=== PATIENT | female | born 1930 | race Caucasian/White ===

== ENCOUNTER 2018-04-09 20:47 | Emergency (ER) | payer MEDICARE, OTHER ==
[~2018-04-09] VITALS: Ht 162.6 cm; Wt 58.1 kg
[~2018-04-09 20:47] MED LIST: ALEN1TAB3 PO; ASP81TEC PO; ATRV10T PO; CALC1TAB88 PO; OMEG1CAP51 PO
--- OUTSIDE RECORDS SUMMARY | 2018-04-09 20:55 | XMS REPORT | Continuity of Care Document ---
Author Author [facility] Ctr of [facility] Ctr of [facility] Address Unknown Phone Unavailable Allergies Active Description Code Type Severity Reaction Onset Reported/Identified Relationship to Patient Clinical Status Yes No Known Drug Allergies [id number] Drug Allergy Unknown N/A 05/04/2013 Medications There is no data. Problems Date Dx Coded Attending Type Code Diagnosis Diagnosed By 01/15/2016 Ot 733.00 OSTEOPOROSIS NOS 01/15/2016 Ot 733.90 BONE CARTILAGE DIS NOS 01/15/2016 TORIE OLIVARES DO Ot 780.2 SYNCOPE AND COLLAPSE 01/19/2016 TORIE OLIVARES DO Ot R05 COUGH 02/05/2016 TORIE OLIVARES DO Ot R05 COUGH 03/05/2016 TORIE OLIVARES DO Ot R06.02 SHORTNESS OF BREATH 03/08/2016 TORIE OLIVARES DO Ot R06.02 SHORTNESS OF BREATH 03/08/2016 TORIE OLIVARES DO Ot R06.02 SHORTNESS OF BREATH 03/12/2016 TORIE OLIVARES DO Ot R06.02 SHORTNESS OF BREATH 03/26/2016 TORIE OLIVARES DO Ot R06.02 SHORTNESS OF BREATH 04/06/2016 TORIE OLIVARES DO Ot R06.02 SHORTNESS OF BREATH Procedures There is no data. Results There is no data. Encounters ACCT No. Visit Date/Time Discharge Status Pt. Type Provider Facility Loc./Unit Complaint [id number] 03/05/2016 11:34:00 03/05/2016 23:59:59 CLS Outpatient TORIE OLIVARES DO [facility] RT [id number] 03/05/2016 11:29:00 03/05/2016 23:59:59 CLS Outpatient TORIE OLIVARES DO [facility] CARD [id number] 01/15/2016 09:59:00 01/15/2016 23:59:59 CLS Outpatient TORIE OLIVARES DO [facility] RAD [id number] 05/04/2013 06:51:00 05/04/2013 23:59:59 [facility] Outpatient TORIE OLIVARES DO [facility] RAD [id number] 04/07/2012 09:14:00 Document Registration
[2018-04-09] MEDS ORDERED: OXYMETAZOLINE (AFRIN) 0.05% NA 15 ML BTL ONE (21:57)
--- NOTE | 2018-04-09 22:09 | ED EENT ---
History of Present Illness General Chief Complaint: Nasal Problems Stated Complaint: NOSE BLEED COUPLE HOURS Nursing Triage Note: c/o nose bleed Source: patient Exam Limitations: no limitations History of Present Illness Date Seen by Provider: Apr 09, 2018 Time Seen by Provider: 21:30 Initial Comments Patient is an 87-year-old female who presents to the emergency room with complaints of right sided nosebleed that started at 1930 tonight. Timing/Duration: abrupt Location: nose Prearrival Treatment: no prearrival treatment, squeezing nostrils Associated Symptoms: denies symptoms Allergies and Home Medications Allergies Coded Allergies: No Known Drug Allergies (Unverified , 05/04/13) Home Medications Alendronate Sodium/Vitamin D3 1 Each Tablet, 1 EACH PO ONCE WEEKLY, (Reported) Amoxicillin/Potassium Clav 1 Each Tablet, 1 EACH PO BID Prescribed by: CAMELIA ADAMSON on 04/09/182236 Aspirin 81 Mg Tabec, 81 MG PO DAILY, (Reported) Atorvastatin Calcium 10 Mg Tablet, 1 EACH PO DAILY, (Reported) Patient Home Medication List Home Medication List Reviewed: Yes Review of Systems Constitutional: see HPI; No chills, No fever Nose: see HPI; denies clots, denies congestion; epistaxis; denies pain; bloody discharge; denies clear discharge, denies previous injury All Other Systems Reviewed Negative Unless Noted: Yes Past Vxilvsl-Qzjyyw-Vhtctb Hx Past Med/Social Hx: Reviewed Nursing Past Med/Soc Hx Patient Social History Alcohol Use: Denies Use Recreational Drug Use: No Smoking Status: Never a Smoker Recent Foreign Travel: No Contact w/Someone Who Travel: No Recent Infectious Disease Expo: No Physical Abuse: No Sexual Abuse: No Past Medical History Surgeries: Yes Adenoidectomy, Tonsillectomy Respiratory: No Cardiac: No Neurological: No Genitourinary: No Gastrointestinal: No Musculoskeletal: No Endocrine: No HEENT: No Cancer: No Psychosocial: No Nursing Suicide Risk Score: 0 Integumentary: No Blood Disorders: No Family Medical History Reviewed Nursing Family Hx Physical Exam Vital Signs Vital Signs - First Documented 04/09/18 04/09/18 21:19 23:11 Temp 98.2 Pulse 68 Resp 18 B/P (MAP) 218/72 (120) Pulse Ox 98 O2 Delivery Room Air Height, Weight, BMI Height: 5'4.00" Weight: 128lbs. oz. 58.339294vp; 21.97 BMI Method:Stated General Appearance: WD/WN, no apparent distress Nose: active bleeding; No discharge; dried blood Mouth/Throat: normal mouth inspection, other (no blood running down the back of her throat. not coughing up blood.) Cardiovascular: regular rate, rhythm, no edema, no gallop, no JVD, no murmur Respiratory: chest non-tender, lungs clear, normal breath sounds, no respiratory distress, no accessory muscle use Skin: normal color, warm/dry Procedures/Interventions Nasal : Nasal Location: Right Clots Cleared from Nasal: Patient Blowing Nasal Drops Instilled: Afrin Inspection with: Otoscope Nasal Procedures: Rapid Rhino (4.5cm) Progress The nasal passages were cleared by having the patient blow her nose. Afrin was used as a vasoconstrictor. A rapid Rhino was inserted that had been saturated in saline. Bleeding is controlled at this time. Progress/Results/Core Measures Results/Orders My Orders Medications Given in ED Vital Signs/I&O Blood Pressure Mean: 120 Progress Progress Note : Progress Note The bleeding has been controlled with the rapid rhino. Her blood pressure has trended down over the stay. She agrees with plans for discharge and close follow up with Dr. Urbano tomorrow. Departure Impression Primary Impression: Epistaxis Disposition: 01 HOME, SELF-CARE Condition: Stable/Unchanged Departure-Patient Inst. Decision time for Depature: 22:34 Referrals: TORIE URBANO DO (PCP/Family) Primary Care Physician Patient Instructions: Nosebleeds (DC) Add. Discharge Instructions: Follow-up with Dr. Urbano tomorrow to have the rapid Rhino removed. Take medication as directed. Return back to the emergency room for any return in bleeding, or any other concerns as needed. All discharge instructions reviewed with patient and/or family. Voiced understanding. Scripts Amoxicillin/Potassium Clav (Augmentin 875-125 Tablet) 1 Each Tablet 1 EACH PO BID for 5 Days, #10 TAB Prov: CAMELIA ADAMSON 04/09/18 CAMELIA ADAMSON Apr 09, 2018 22:09
[2018-04-09] MEDS ORDERED: cloNIDine 0.2 MG (CATAPRES) TAB ONE (22:17)
[2018-04-09] MEDS ORDERED: cloNIDine 0.2 MG (CATAPRES) TAB PO ONE (22:30)
[2018-04-09] MEDS ORDERED: AMOX-358 PO (22:37)
[2018-04-09 23:11] VITALS: BP 168/77
[2018-04-10] MEDS ORDERED: OXYMETAZOLINE (AFRIN) 0.05% NA 15 ML BTL SCH (09:00)
== END 2018-04-09 23:13 | disposition home or self-care (01) ==
LOC: EDUNIT# 20:47 → ER 20:49
DX: R04.0 Epistaxis (principal); Z79.82 Long term (current) use of aspirin; Z90.89 Acquired absence of other organs
CPT/HCPCS: 99283

== ENCOUNTER 2018-06-21 18:41 | Emergency (ER) | payer MEDICARE, OTHER ==
[~2018-06-21] VITALS: Ht 157.5 cm; Wt 54.4 kg
[2018-06-21 18:41] VITALS: BP 143/93
[~2018-06-21 18:41] MED LIST changes: +AMOX-358 PO
--- OUTSIDE RECORDS SUMMARY | 2018-06-21 18:45 | XMS REPORT | Continuity of Care Document ---
Author Author [facility] C[facility] Ctr of [facility] Address Unknown Phone Unavailable Allergies Active Description Code Type Severity Reaction Onset Reported/Identified Relationship to Patient Clinical Status Yes No Known Drug Allergies [id number] Drug Allergy Unknown N/A 05/04/2013 Medications There is no data. Problems Date Dx Coded Attending Type Code Diagnosis Diagnosed By 01/15/2016 Ot 733.00 OSTEOPOROSIS NOS 01/15/2016 Ot 733.90 BONE CARTILAGE DIS NOS 01/15/2016 TORIE OLIVARES DO, Ot 780.2 SYNCOPE AND COLLAPSE 01/19/2016 TORIE OLIVARES DO Ot R05 COUGH 02/05/2016 TORIE OLIVARES DO, Ot R05 COUGH 03/05/2016 TORIE OLIVARES DO Ot R06.02 SHORTNESS OF BREATH 03/08/2016 TORIE OLIVARES DO Ot R06.02 SHORTNESS OF BREATH 03/08/2016 TORIE OLIVARES DO Ot R06.02 SHORTNESS OF BREATH 03/12/2016 TORIE OLIVARES DO Ot R06.02 SHORTNESS OF BREATH 03/26/2016 TORIE OLIVARES DO Ot R06.02 SHORTNESS OF BREATH 04/06/2016 TORIE OLIVARES DO Ot R06.02 SHORTNESS OF BREATH 04/09/2018 CAMELIA ADAMSON Ot R04.0 EPISTAXIS 04/09/2018 CAMELIA ADAMSON Ot Z79.82 [facility] (CURRENT) USE OF ASPIRIN 04/09/2018 CAMELIA ADAMSON Ot Z90.89 ACQUIRED ABSENCE OF OTHER ORGANS 04/09/2018 TORIE OLIVARES DO, Ot 780.2 SYNCOPE AND COLLAPSE 04/09/2018 TORIE OLIVARES DO Ot R05 COUGH 04/09/2018 TORIE OLIVARES DO, Ot R06.02 SHORTNESS OF BREATH 04/09/2018 TORIE OLIVARES DO, Ot R06.02 SHORTNESS OF BREATH 04/11/2018 CAMELIA ADAMSON Ot R04.0 EPISTAXIS 04/11/2018 CAMELIA ADAMSON Ot Z79.82 [facility] (CURRENT) USE OF ASPIRIN 04/11/2018 CAMELIA ADAMSON Ot Z90.89 ACQUIRED ABSENCE OF OTHER ORGANS Procedures There is no data. Results There is no data. Encounters ACCT No. Visit Date/Time Discharge Status Pt. Type Provider Facility Loc./Unit Complaint [id number] 04/09/2018 20:49:00 04/09/2018 23:13:00 DIS Emergency CAMELIA ADAMSON [facility] ER NOSE BLEED COUPLE HOURS [id number] 03/05/2016 11:34:00 03/05/2016 23:59:59 CLS Outpatient TORIE OLIVARES DO [facility] RT SOB [id number] 03/05/2016 11:29:00 03/05/2016 23:59:59 CLS Outpatient TORIE OLIVARES DO [facility] CARD SOB [id number] 01/15/2016 09:59:00 01/15/2016 23:59:59 CLS Outpatient TORIE OLIVARES DO [facility] RAD COUGH, BRONCHIAL [id number] 05/04/2013 06:51:00 05/04/2013 23:59:59 CLS Outpatient TORIE OLIVARES DO [facility] RAD SYNCOPE [id number] 04/07/2012 09:14:00 Document Registration
--- NOTE | 2018-06-21 19:06 | ED Neurological Problem ---
General Chief Complaint: Neuro-Stroke Like Symptoms Stated Complaint: POSS STROKE Source: family Exam Limitations: no limitations History of Present Illness Date Seen by Provider: Jun 21, 2018 Time Seen by Provider: 19:04 Initial Comments The patient is an 87-year-old white female known to me for many years. She presents with family who last contacted her about 1030 last night. The family member states that there was evidence that Debo had been out of the home sometime today. She is surmised that she might have gone to the [facility] for her exercise class. We were able to confirm that she was there from 8-9 this morning. The family member then states that things were out of sorts at her home and that she is generally very neat. Door's were open, sliding doors were off the track. She seemed confused but was able to walk. Her sentences were mostly clear but made no sense. Timing/Duration: other (this constitutes last known well) Allergies and Home Medications Allergies Coded Allergies: No Known Drug Allergies (Unverified , 05/04/13) Home Medications Alendronate Sodium/Vitamin D3 1 Each Tablet, 1 EACH PO ONCE WEEKLY, (Reported) Amoxicillin/Potassium Clav 1 Each Tablet, 1 EACH PO BID Prescribed by: CAMELIA ADAMSON on 04/09/182236 Aspirin 81 Mg Tabec, 81 MG PO DAILY, (Reported) Atorvastatin Calcium 10 Mg Tablet, 1 EACH PO DAILY, (Reported) Patient Home Medication List Home Medication List Reviewed: Yes Review of Systems Review of Systems Constitutional: see HPI, other (the patient follows instructions albeit somewhat slowly. Her attempts to answer questions result in nonsense or word salad) Past Ublnpvh-Ivfbhi-Ipnitq Hx Patient Social History Recent Foreign Travel: No Contact w/Someone Who Travel: No Past Medical History Surgeries: Yes Adenoidectomy, Tonsillectomy Respiratory: No Cardiac: No Neurological: No Genitourinary: No Gastrointestinal: No Musculoskeletal: No Endocrine: No HEENT: No Cancer: No Psychosocial: No Integumentary: No Blood Disorders: No Physical Exam Vital Signs Vital Signs - First Documented 06/21/18 18:41 Temp 98.2 Pulse 83 Resp 18 B/P (MAP) 143/93 Pulse Ox 98 O2 Delivery Room Air Capillary Refill : Height, Weight, BMI Height: 5'4.00" Weight: 128lbs. oz. 58.663824be; 21.97 BMI Method:Stated General Appearance: other (blank expression) HEENT: other (the face is symmetric but appears droopy) Neck: full range of motion Respiratory: chest non-tender, lungs clear, normal breath sounds, no respiratory distress, no accessory muscle use, respiratory distress Cardiovascular: normal peripheral pulses, regular rate, rhythm, no edema, no gallop, no JVD, no murmur Gastrointestinal: normal bowel sounds, non tender, soft, no organomegaly Back: normal inspection Extremities: other (after coaxing she was able to lift each heel up about 6 inches above bed) Neurologic/Psychiatric: admeasurer II-XII nml as tested Skin: normal color, warm/dry Lymphatic: no adenopathy Progress/Results/Core Measures Results/Orders Lab Results Laboratory Tests Test 06/21/18 18:55 Range/Units White Blood Count 7.7 4.3-11.0 10^3/uL Red Blood Count 3.55 L 4.35-5.85 10^6/uL Hemoglobin 11.7 11.5-16.0 G/DL Hematocrit 33 L 35-52 % Mean Corpuscular Volume 92 80-99 FL Mean Corpuscular Hemoglobin 33 25-34 PG Mean Corpuscular Hemoglobin Concent 36 32-36 G/DL Red Cell Distribution Width 12.7 10.0-14.5 % Platelet Count 248 130-400 10^3/uL Mean Platelet Volume 9.7 7.4-10.4 FL Neutrophils (%) (Auto) 84 H 42-75 % Lymphocytes (%) (Auto) 9 L 12-44 % Monocytes (%) (Auto) 7 0-12 % Eosinophils (%) (Auto) 1 0-10 % Basophils (%) (Auto) 0 0-10 % Neutrophils # (Auto) 6.5 1.8-7.8 X 10^3 Lymphocytes # (Auto) 0.7 L 1.0-4.0 X 10^3 Monocytes # (Auto) 0.5 0.0-1.0 X 10^3 Eosinophils # (Auto) 0.1 0.0-0.3 10^3/uL Basophils # (Auto) 0.0 0.0-0.1 10^3/uL Sodium Level 124 *L 135-145 MMOL/L Potassium Level 4.5 3.6-5.0 MMOL/L Chloride Level 92 L 98-107 MMOL/L Carbon Dioxide Level 20 L 21-32 MMOL/L Anion Gap 12 5-14 MMOL/L Blood Urea Nitrogen 9 7-18 MG/DL Creatinine 0.72 0.60-1.30 MG/DL Estimat Glomerular Filtration Rate > 60 BUN/Creatinine Ratio 13 Glucose Level 105 70-105 MG/DL Glucometer 107 70-110 MG/DL Calcium Level 9.2 8.5-10.1 MG/DL Corrected Calcium 9.1 8.5-10.1 MG/DL Total Bilirubin 0.5 0.1-1.0 MG/DL Aspartate Amino Transf (AST/SGOT) 19 5-34 U/L Alanine Aminotransferase (ALT/SGPT) 13 0-55 U/L Alkaline Phosphatase 68 40-136 U/L Total Protein 7.3 6.4-8.2 GM/DL Albumin 4.1 3.2-4.5 GM/DL My Orders Orders - VIDHYA LOPZE MD Cbc With Automated Diff (06/21/18 19:06) Comprehensive Metabolic Panel (06/21/18 19:06) Ct Head Wo-R/O Stroke (06/21/18 19:06) Chest 1 View, Ap/Pa Only (06/21/18 ) Ns Iv 1000 Ml (Sodium Chloride 0.9%) (06/21/18 19:49) Medications Given in ED Current Medications Medications Dose Ordered Sig/Renate Route Start Time Stop Time Status Last Admin Dose Admin Sodium Chloride 1,000 ml @ ud STK-MED ONCE .ROUTE 06/21/18 19:49 06/21/18 19:55 DC 06/21/18 20:00 75 MLS/HR Vital Signs/I&O 06/21/18 06/21/18 18:41 18:41 Temp 98.2 Pulse 83 83 Resp 18 18 B/P (MAP) 143/93 143/93 (110) Pulse Ox 98 98 O2 Delivery Room Air Departure Communication (Admissions) 2030 the patient will be going to [place] to see neurology. It is noted that her sodium is 124. She takes no diuretics. This was discussed with Dr. JEREZ hospitalist Impression Primary Impression: confusion Additional Impression: hyponatremia Disposition: 02 XFER SHT-TRM HOSP Condition: Stable/Unchanged Transfer Time Spoke to Accepting Phy: 20:30 Transfer Progress Notes Discussed case with Dr. JEREZ hospitalist at [place]. He accepted the patient in transfer and recommended that we continue normal saline. Departure-Patient Inst. Referrals: TORIE OLIVARES DO (PCP/Family) Primary Care Physician VIDHYA LOPEZ MD Jun 21, 2018 19:06
[2018-06-21 19:12] LABS: BASOPHILS % (AUTO) 0 % (0-10); EOSINOPHILS # (AUTO) 0.1 10^3/uL (0.0-0.3); EOSINOPHILS % (AUTO) 1 % (0-10); HEMATOCRIT 33 % (35-52); HEMOGLOBIN 11.7 G/DL (11.5-16.0); LYMPHOCYTES # (AUTO) 0.7 X 10^3 (1.0-4.0); LYMPHOCYTES % (AUTO) 9 % (12-44); MEAN CORPUSCULAR HEMOGLOBIN 33 PG (25-34); MEAN CORPUSCULAR HGB CONC 36 G/DL (32-36); MEAN CORPUSCULAR VOLUME 92 FL (80-99); MEAN PLATELET VOLUME 9.7 FL (7.4-10.4); MONOCYTES # (AUTO) 0.5 X 10^3 (0.0-1.0); MONOCYTES % (AUTO) 7 % (0-12); NEUTROPHILS # (AUTO) 6.5 X 10^3 (1.8-7.8); NEUTROPHILS % (AUTO) 84 % (42-75); PLATELET COUNT 248 10^3/uL (130-400); RED BLOOD COUNT 3.55 10^6/uL (4.35-5.85); RED CELL DISTRIBUTION WIDTH 12.7 % (10.0-14.5); WHITE BLOOD COUNT 7.7 10^3/uL (4.3-11.0)
--- NOTE | 2018-06-21 19:22 | Diagnostic Imaging Report ---
INDICATION: Stroke-like symptoms with confusion. COMPARISON: Exam compared to 01/15/2016. FINDINGS: Air trapping and COPD as chronic findings stable. Heart size is stable. No infiltrate, effusion, or pneumothorax. Some mild biapical partially calcified pleural-parenchymal scarring is stable. IMPRESSION: No acute appearing abnormality. Dictated by: Dictated on workstation # [id number]
--- NOTE | 2018-06-21 19:26 | Diagnostic Imaging Report ---
EXAMINATION: CT head without contrast. INDICATION: Confusion and stroke-like symptoms. COMPARISON: No comparison available. FINDINGS: There is age-appropriate global volume loss present. There are some patchy regions of hypoattenuation within the deep white matter compatible with microvascular disease. There are, however, no CT findings of territorial loss of [place]-white differentiation or abnormal hypodensity within the basal ganglia or the snehal. There are no findings of hemorrhage. There is no mass effect or shift. There is no hydrocephalus. There is no abnormal extra-axial fluid collection. No focal abnormal hyperdense blood vessel evident. There are atherosclerotic calcifications within the carotid siphons. Mastoid air cells are clear. There is mild mucosal thickening in the left maxillary sinus. There is a torus palatinus. The orbital contents are unremarkable. IMPRESSION: 1. Global volume loss with minimal microvascular changes. There are no CT findings of territorial ischemia, hemorrhage, mass effect, or hydrocephalus. Dictated by: Dictated on workstation # [id number]
[2018-06-21 19:27] LABS: ALANINE AMINOTRANSFERASE 13 U/L (0-55); ALBUMIN 4.1 GM/DL (3.2-4.5); ALKALINE PHOSPHATASE 68 U/L (40-136); BILIRUBIN,TOTAL 0.5 MG/DL (0.1-1.0); BUN/CREATININE RATIO 13; CALCIUM 9.2 MG/DL (8.5-10.1); CARBON DIOXIDE 20 MMOL/L (21-32); CHLORIDE 92 MMOL/L (98-107); CREATININE SERUM 0.72 MG/DL (0.60-1.30); GFR ESTIMATED > 60; GLUCOSE 105 MG/DL (70-105); POTASSIUM 4.5 MMOL/L (3.6-5.0); TOTAL PROTEIN 7.3 GM/DL (6.4-8.2)
[2018-06-21 19:40] LABS: SODIUM 124 MMOL/L (135-145)
[2018-06-21] MEDS ORDERED: NS IV 1000 ML 1,000 ML ONE (19:49)
[2018-06-21 23:11] VITALS: BP 162/72
== END 2018-06-21 23:11 | disposition short-term general hospital (02) ==
LOC: EDUNIT# 18:41 → ER 18:42
DX: R41.0 Disorientation, unspecified (principal); E87.1 Hypo-osmolality and hyponatremia; Z79.82 Long term (current) use of aspirin; Z90.89 Acquired absence of other organs
CPT/HCPCS: 36415; 70450; 71045; 80053; 82962; 85025